=== PATIENT | female | born 2000 | race Caucasian/White ===

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

== ENCOUNTER 2020-01-11 17:32 | Emergency (ER) | payer MEDICAID ==
[~2020-01-11] VITALS: Ht 177.8 cm; Wt 121.4 kg
[2020-01-11 17:48] VITALS: Ht 177.8 cm; Wt 121.4 kg
[2020-01-11 18:51] LABS: BASOPHILS 0.3 % (0-2); EOSINOPHILS 1.6 % (0-7); HEMATOCRIT 37.1 % (36.0-48.0); HEMOGLOBIN 11.9 g/dL (12-16); IMMATURE GRANULOCYTES 0.3 % (0-5); LYMPHOCYTES 37.1 % (15-50); MCH 27.5 pg (26.0-34.0); MCHC 32.1 g/dL (31.0-37.0); MCV 85.7 fL (80.0-100.0); MEAN PLATELET VOLUME 9.8 fL (7.4-10.4); MONOCYTES 7.1 % (2-11); NEUTROPHILS 53.6 % (40-80); PLATELET COUNT 409 10x3/uL (130-400); RBC 4.33 10x6/uL (4.00-5.40); RDW 14.5 % (11.5-14.5); WBC 10.9 10x3/uL (4.8-10.8)
[2020-01-11 18:57] LABS: BILIRUBIN NEGATIVE (NEGATIVE); KETONE NEGATIVE (NEGATIVE); NITRITE NEGATIVE (NEGATIVE); UROBILINOGEN NORMAL mg/dL (< 2)
[2020-01-11 18:58] LABS: BACTERIA FEW HPF (NONE SEEN); EPITHELIAL CELLS 0-5 /hpf (0-5); WHITE CELLS - URINE 0-5 HPF (0-4)
[2020-01-11 19:01] LABS: CALC OSMOLALITY 279 mosm/kg (275-300); CALCIUM 8.9 mg/dL (8.5-10.1); CARBON DIOXIDE 26.1 mmol/L (21.0-32.0); CHLORIDE - SERUM 105 mmol/L (98-107); CREATININE - SERUM 0.8 mg/dL (0.6-1.3); GLUCOSE 103 mg/dL (74-106); POTASSIUM - SERUM 3.5 mmol/L (3.5-5.1); SODIUM 141 mmol/L (136-145); UREA NITROGEN 9 mg/dL (7-18); eGFR NON AFRICAN AMERICAN > 90 mL/min (90-120)
[2020-01-11 19:09] LABS: ALBUMIN 3.7 g/dL (3.4-5.0); ALKALINE PHOSPHATASE 81 U/L (30-120); ALT (SGPT) 20 U/L (10-68); BILIRUBIN - TOTAL 0.13 mg/dL (0.2-1.3); MAGNESIUM - SERUM 1.9 mg/dL (1.8-2.4); PROTEIN - SERUM 7.6 g/dL (6.4-8.2)
[2020-01-11 19:14] LABS: UDS - AMPHET NEGATIVE QUAL (NEGATIVE); UDS - BARB NEGATIVE QUAL (NEGATIVE); UDS - BENZO POSITIVE QUAL (NEGATIVE); UDS - COCAINE NEGATIVE QUAL (NEGATIVE); UDS - OPIATE NEGATIVE QUAL (NEGATIVE); UDS - PCP NEGATIVE QUAL (NEGATIVE); UDS - THC POSITIVE QUAL (NEGATIVE)
--- NOTE | 2020-01-11 19:32 | NUR ---
DR. AMES NOTIFIED AND SITTER ORDERED. SITTER AT BEDSIDE. NOTIFIED CHARGE NURSE AND ATTENDING IN REGARDS TO ASSESSMENT FINDINGS. RESOURCES GIVEN TO PT AND SAFETY PLAN INITIATED.
[2020-01-12 17:18] VITALS: BP 126/77
== END 2020-01-12 17:18 ==
LOC: D.ER 17:32
PROVIDERS: Family Medicine
DX: O99.345 Other mental disorders complicating the puerperium (principal); F53.0 Postpartum depression; R45.851 Suicidal ideations

== ENCOUNTER 2020-07-17 15:46 | Emergency (ER) | payer MEDICAID ==
[~2020-07-17] VITALS: Ht 177.8 cm; Wt 116.4 kg
[~2020-07-17 15:46] MED LIST: DEPAKOTE250 MG PO; KLONOPIN1 MG PO
[2020-07-17 15:50] VITALS: Ht 177.8 cm; Wt 116.4 kg
[2020-07-17 17:24] VITALS: BP 123/68
== END 2020-07-17 17:24 | disposition home or self-care (01) ==
LOC: D.ER 15:46
DX: F31.9 Bipolar disorder, unspecified (principal); K21.9 Gastro-esophageal reflux disease without esophagitis

== ENCOUNTER 2020-09-09 20:18 | Emergency (ER) | payer MEDICAID ==
[~2020-09-09] VITALS: Ht 177.8 cm; Wt 120.5 kg
[2020-09-09 20:20] VITALS: Ht 177.8 cm; Wt 120.5 kg
[2020-09-09] MEDS ORDERED: TRAZODONE HCL150 MG PO (20:23)
[2020-09-09] MEDS ORDERED: PHENERGAN25 M1 PO (20:23)
[2020-09-09] MEDS ORDERED: ARTHROTEC EC 71 EACH PO (20:58)
[2020-09-09 21:16] VITALS: BP 147/97
== END 2020-09-09 21:21 | disposition home or self-care (01) ==
LOC: D.ER 20:18
DX: S80.02XA Contusion of left knee, initial encounter (principal); M23.91 Unspecified internal derangement of right knee; W19.XXXA Unspecified fall, initial encounter; Y93.9 Activity, unspecified; Y92.9 Unspecified place or not applicable; K21.9 Gastro-esophageal reflux disease without esophagitis